=== PATIENT | male | born 1960 | race Caucasian/White ===

== ENCOUNTER → 2020-09-18 | Outpatient (CLI) | payer OTHER ==
--- NOTE | 2020-09-18 14:55 | RAD ---
EXAM: Cervical spine, 5 views. HISTORY: Pain. COMPARISON: None. FINDINGS: 5 views of the cervical spine are obtained. There is no listhesis. The vertebral calvin celestino l in height and the disc spaces are preserved. There is mild facet arthropathy at multiple levels. IMPRESSION: No acute osseous finding. Electronically signed by: Cristina Garrido MD (09/18/2020 2:53 PM) [id number]
== END ==
LOC: RAD 14:08
PROVIDERS: ATTEND Internal Medicine Rheumatology
DX: M47.812 Spondylosis without myelopathy or radiculopathy, cervical region (principal)
CPT/HCPCS: 72040